=== PATIENT | female | born 1965 | race Caucasian/White ===

== ENCOUNTER 2018-07-19 10:13 | Day surgery (SDC) | payer OTHER ==
[2018-07-19] VITALS (16 sets, daily range): BP systolic 94–141; BP diastolic 60–78; PULSE 58–72; RESP 14–22; Ht 160 cm; Wt 100.9 kg
[~2018-07-19] VITALS: Ht 160 cm; Wt 100.9 kg
[~2018-07-19 10:13] MED LIST: DESFLURANE 15 MIN ONE; NEOSTIGMINE 3 MG/3 ML SYRINGE ONE
[2018-07-19] MEDS ORDERED: BENA20TA4 PO (10:53)
[2018-07-19] MEDS ORDERED: DILT240T PO (10:54)
[2018-07-19] MEDS ORDERED: EPINEPHrine 0.1 MG/ML SYG ONE (13:56)
[2018-07-19] MEDS ORDERED: BUPIVACAINE 0.5%/EPI (SDV) 30 ML INJ ONE (13:56)
--- NOTE | 2018-07-19 14:10 | PREAC ---
Date/Time of Note Date/Time of Note DATE: 07/19/18 TIME: 14:06 Anesthesia Eval and Record Evaluation Time Pre-Procedure Interview DATE: 07/19/18 TIME: 14:06 Age 52 Sex female NPO: 8 hrs Preoperative diagnosis R knee pain Planned procedure R knee scope arthroscopy Past Medical History Past Medical History: Includes Cardio: HTN, Other (heart murmur) Pulm: Sleep Apnea, Home CPAP, Asthma (last asthma attack a year ago) GI: Obesity Psych: Anxiety Surgery & Anesthesia Issues No known issue (c-sec) Meds Anticoagulation: No Beta Fernando within 24 hr: No Reason Beta Fernando not given: Pt. not on B-Fernando Reported Medications Diltiazem Hcl* (Cardizem LA*) 240 Mg Tab.sr.24h, 240 MG PO DAILY, #30 TAB.SA 07/19/18 Benazepril Hcl* (Benazepril Hcl*) 20 Mg Tablet, 20 MG PO DAILY, #30 TAB 07/19/18 Meds reviewed: Yes Allergies Coded Allergies: Penicillins (Verified Allergy, Unknown, 07/19/18) Allergies Reviewed: Yes Labs/Studies Labs Reviewed: Reviewed by anesthesiologist Result Diagram: 07/19/18 1100 07/19/18 1100 Laboratory Tests 07/19/18 11:00 test: Negative Studies: ECG (nml, nsr), CXR (Normal chest radiograph.) Pre-procedure Exam Last vitals Vital Signs Date Temp Pulse Resp B/P (MAP) Pulse Ox O2 O2 Flow FiO2 Time Delivery Rate 07/19/18 97.5 72 16 141/78 100 Room Air 11:38 (99) Airway: Adequate mouth opening, Adequate thyromental dist Mallampati: Mallampati II Teeth: Normal (gaps in teeth) Lung: Normal Heart: Normal ASA Physical Status ASA physical status: 3 Emergency: None Planned Anesthetic General/MAC: ETT Pre-operative Attestations Prior to commencing anesthesia and surgery, the patient was re-evaluated, there was verification of: *The patient's identity *The results of appropriate recent lab work and preoperative vital signs *The above evaluation not changing prior to induction *Anesthetic plan, risk benefits, alternative and complications discussed with patient/family; questions answered; patient/family understands, accepts and wishes to proceed. LOKESH DEMARCO Jul 19, 2018 14:10
[2018-07-19] MEDS ORDERED: LABETALOL HCL 20MG INJ IV PRN (15:00)
[2018-07-19] MEDS ORDERED: EPHEDrine SULFATE 50 MG/5 ML SYG IV PRN (15:00)
[2018-07-19] MEDS ORDERED: MIDAZOLAM 1 MG/ML 2 ML INJ IV PRN (15:00)
[2018-07-19] MEDS ORDERED: MEPERIDINE 25 MG INJ IV PRN (15:00)
[2018-07-19] MEDS ORDERED: OXYCODONE/ACETAMINOPHEN (5/325) TAB PO PRN ×2 (15:00)
[2018-07-19] MEDS ORDERED: DIPHENHYDRAMINE 50 MG INJ IV PRN (15:00)
[2018-07-19] MEDS ORDERED: ALBUTEROL 0.083% (NEB) 2.5 MG/3 ML AMP HHN PRN (15:00)
[2018-07-19] MEDS ORDERED: IPRATROPIUM (NEB) 0.5 MG/2.5 ML AMP HHN PRN (15:00)
[2018-07-19] MEDS ORDERED: TRIMETHOBENZAMIDE 100 MG/ML VIAL IM PRN (15:00)
[2018-07-19] MEDS ORDERED: HYDROmorphONE 1 MG/5 ML IV SYRINGE IV PRN ×2 (15:00)
[2018-07-19] MEDS ORDERED: ONDANSETRON 4 MG INJ IV PRN (15:00)
[2018-07-19] MEDS ORDERED: FENTAnyl 50 MCG/ML VIAL IV PRN ×3 (15:00)
[2018-07-19] MEDS ORDERED: hydrALAzine 20 MG INJ IV PRN (15:00)
[2018-07-19] MEDS ORDERED: PROPOFOL 20 ML ONE (15:05)
[2018-07-19] MEDS ORDERED: DEXAMETHASONE 4 MG/ML 5 ML INJ ONE (15:05)
[2018-07-19] MEDS ORDERED: FENTAnyl 50 MCG/ML VIAL ONE (15:05)
[2018-07-19] MEDS ORDERED: CEFAZOLIN 1 GM INJ ONE (15:05)
[2018-07-19] MEDS ORDERED: GLYCOPYRROLATE 0.4 MG INJ ONE (15:05)
[2018-07-19] MEDS ORDERED: MIDAZOLAM 1 MG/ML 2 ML INJ ONE (15:05)
[2018-07-19] MEDS ORDERED: ONDANSETRON 4 MG INJ ONE (15:05)
[2018-07-19] MEDS ORDERED: ROCURONIUM 50 MG INJ ONE (15:05)
--- NOTE | 2018-07-19 15:41 | OPR ---
Date/Time of Note Date/Time of Note DATE: 07/19/18 TIME: 14:54 Operative Report Preoperative Diagnosis right knee derangement Postoperative Diagnosis same Operation/Procedure Performed right knee arthroscopic partial medial and lateral meniscectomy and synovectomy chondroplasty Surgeon see signature line Production Coordinator none Anesthesia Type: general Estimated Blood Loss: 0 - 10 ml's Transfusion none Specimen meniscus Grafts/Implants none Complications none Pt Condition Post Procedure: stable Procedure Description right knee scope REBA BUTLER MD Jul 19, 2018 15:04
--- NOTE | 2018-07-19 15:48 | PAC ---
Date/Time of Note Date/Time of Note DATE: 07/19/18 TIME: 15:48 Post-Anesthesia Notes Post-Anesthesia Note Last documented vital signs Vital Signs Date Temp Pulse Resp B/P (MAP) Pulse Ox O2 O2 Flow FiO2 Time Delivery Rate 07/19/18 97.5 72 16 141/78 100 Room Air 11:38 (99) Activity: WNL Respiratory function: WNL Cardiovascular function: WNL Mental status: Baseline Pain reasonably controlled: Yes Hydration appropriate: Yes Nausea/Vomiting absent: Yes Cecilio Kerns M.D. Jul 19, 2018 15:48
[2018-07-19] MEDS: HYDROmorphONE 1 MG/5 ML IV SYRINGE IV PRN ×2 (16:17→16:28)
--- NOTE | 2018-07-19 21:45 | OPR ---
DATE OF OPERATION: ANESTHESIA: General. PREOPERATIVE DIAGNOSIS: Right knee derangement pain, locking and giving way. POSTOPERATIVE DIAGNOSIS: Right knee derangement pain, locking and giving way. OPERATION PERFORMED: 1. Right knee arthroscopic partial medial and lateral meniscectomy. 2. Right knee extensive synovectomy. 3. Chondroplasty medial femoral condyle. ESTIMATED BLOOD LOSS: 50 mL. TOURNIQUET TIME: 20 minutes. COMPLICATIONS: None. DESCRIPTION OF PROCEDURE: The patient taken to the operating room and general anesthetic given with intubation. Two grams of Kefzol given for prophylaxis. Tourniquet applied to the right thigh. Righ t leg prepped and draped in usual sterile manner, exsanguinated with the Esmarch bandage, tourniquet inflated to 300 mmHg. Standard medial and lateral portals were made. We inspected the anterior port ion ligament intact. Chondromalacia noted in all compartments. No eburnation noted. A synovial hyp ertrophy was noted. Fibular tears noted in the lateral meniscus debrided with the shaver. The media l meniscus showed complex tears with no bucket handle lesions. The shaver was introduced and synovec darien was performed. The torn edges of the meniscus debrided to a smooth border. No bucket handle __ __ flaps were noted. Hemostasis ascertained using cautery. Wound irrigated copiously and injected w ith Xylocaine. Portals closed with 2-0 nylon suture. Compression bandage applied. Anesthetic rever sed. The patient taken to recovery room in stable condition. Dictated By: REBA LANE/DC Conf#: [id number] DID#: [id number]
== END 2018-07-19 14:45 | disposition home or self-care (01) ==
LOC: SDS 10:13
PROVIDERS: ATTEND Specialist
DX: M23.8X1 Other internal derangements of right knee (principal); S83.231D Complex tear of medial meniscus, current injury, right knee, subsequent encounter; S83.281D Other tear of lateral meniscus, current injury, right knee, subsequent encounter; X58.XXXD Exposure to other specified factors, subsequent encounter; I10 Essential (primary) hypertension; G47.30 Sleep apnea, unspecified
CPT/HCPCS: 29880; 71045; 80053; 84703; 85025; 85610; 85730; J0690; J1100; J1170; J2250; J2405; J2710; J3010; J0171